=== PATIENT | female | born 1985 | race Two or more races ===

== ENCOUNTER 2017-02-14 18:28 | Emergency (ER) | payer SELFPAY ==
[2017-02-14] MEDS ORDERED: MAALOX/LIDO2%VISC/SIMETHICONE 40 ML BOT ONE (19:27)
[2017-02-14] MEDS ORDERED: PANTOPRAZOLE SODIUM 40 MG VIAL IV ONE (19:27)
[2017-02-14 19:43] LABS: ABSOLUTE NEUTROPHIL COUNT 6.1 K/mm3 (1.8-7.7); BASO % 0.3 % (0.2-1.0); EOS # 0.1 (0.0-0.5); EOS % 1.3 % (0.9-2.9); HEMATOCRIT 38.3 % (37.0-47.0); HEMOGLOBIN 12.6 gm/l (12.0-16.0); IMM NEUT # 0.1 K/mm3 (0-0.2); IMM NEUT% 0.5 % (0-1); LYMPH # 3.3 (1.0-4.8); LYMPH % 32.2 % (15-45); MEAN CELL VOLUME 91.8 fl (81.0-99.0); MEAN CORPUSCULAR HEMOGLOBIN 30.2 pg (27.0-31.0); MEAN CORPUSCULAR HGB CONC 32.9 g/dl (33.0-37.0); MEAN PLATELET VOLUME 9.8 fl (7.4-10.4); MONO # 0.7 (0.0-0.8); MONO % 6.4 % (4-12); NEUT % 59.3 % (43-75); PLATELET COUNT 257 K/mm3 (130-400)
[2017-02-14 20:00] LABS: ALB/GLOB RATIO 1.3 (>1.0); CALCIUM 8.9 mg/dL (8.6-10.3)
--- NOTE | 2017-02-14 20:25 | CT ---
HEAD W/O CON COMPARISON: None HISTORY: Posterior headache for one month. TECHNIQUE: Using a [employer] [address] scanner, images were obtained through the head. An automated dose reduction technique was used to minimize patient radiation dose. DOSE INFORMATION: CTDIvol (mGy): 51.70 DLP(mGycm): 887.30 FINDINGS: Mass: None Intracranial Hemorrhage: None Acute Infarction: None Cerebral hemispheres: Normal Basal ganglia: Normal Thalami: Normal Brainstem: Normal Cerebellum: Normal Ventricles: Normal Basilar cisterns: Normal Corpus callosum: Normal Pituitary fossa: Normal Middle ears and mastoid air cells: Normal Orbits and sinuses: Normal Skull and scalp: Normal Dural sinuses and vessels: Normal IMPRESSION: Normal study. The report was sent to the emergency department electronic medical record system 02/14/2017 at 20:21.
[2017-02-14] MEDS ORDERED: KETOROLAC TROMETHAMINE 30 MG/ML 1 ML VIAL ONE (21:09)
[2017-02-14 22:02] LABS: URINE BILIRUBIN NEGATIVE (NEGATIVE); URINE BLOOD NEGATIVE (NEGATIVE); URINE GLUCOSE (UA) NEGATIVE (NEGATIVE); URINE LEUKOCYTE ESTERASE NEGATIVE (NEGATIVE); URINE NITRITE NEGATIVE (NEGATIVE); URINE PROTEIN NEGATIVE (NEGATIVE); URINE UROBILINOGEN NORMAL (0-1 mg/dl)
[2017-02-14 22:08] LABS: URINE APPEARANCE CLEAR; URINE COLOR YELLOW
== END 2017-02-14 21:51 | disposition home or self-care (01) ==
LOC: ED 18:28
DX: R51 Headache (principal); K29.70 Gastritis, unspecified, without bleeding; R63.4 Abnormal weight loss; R10.13 Epigastric pain
CPT/HCPCS: 83690; 84703; 85025; 80053; 85651; 81003; 70450; 96375; 99284; 96374; 99283; A9270; C9113; J1885